=== PATIENT | female | born 1990 | race Caucasian/White ===

== ENCOUNTER 2019-02-22 05:28 | Inpatient (IN) | payer BC, OTHER ==
[~2019-02-22] VITALS: Ht 162.6 cm; Wt 73.1 kg
[2019-02-22 05:28] VITALS: Ht 162.6 cm; Wt 73.1 kg
[2019-02-22 05:46] VITALS: BP 120/73; PULSE 102; RESP 18
[2019-02-22] MEDS ORDERED: FER325 PO (06:03)
[2019-02-22] MEDS ORDERED: CHOL200073 PO (06:03)
[2019-02-22] MEDS ORDERED: FOL8 PO (06:03)
[2019-02-22] MEDS ORDERED: PREN-99 PO (06:03)
[2019-02-22] MEDS ORDERED: LACTATED RINGER'S 1,000 ML IV PRN (06:10)
--- NOTE | 2019-02-22 06:28 | TRIAGE ---
OB Triage Datetime Report Generated by CPN: 02/22/2019 06:28 Datetime: 02/22/2019 05:55 Vaginal Exam Dilatation (cms): 1.0 Effacement (%): 50 Station: -2 Exam By: MAREK Maharaj RN Membrane Status: Intact Cervix, Consistency: Moderate Cervix, Position: Posterior Datetime: 02/22/2019 05:54 Time of Arrival: 02/22/2019 05:28 EGA: 38.6 Arrived By: Ambulatory Arrived From: Home Chief Complaint: c/o uterine contractions with vaginal pressure Movement: Present Contractions: Regular Time Contractions Began: 02/22/2019 01:00 Contractions: 4-5 MINUTES Rupture of Membranes: Denies Vaginal Bleeding: None Vaginal Discharge: Denies Recent Sexual Intercouse: Denies Abdominal Trauma: Not Applicable Patient Complaints: Contractions Time Provider Notified: 02/22/2019 06:05 Provider Notified: ABUSLEME Initial Plan: EFM, SVE Datetime: 02/22/2019 05:52 Stage of : OB Triage Datetime: 02/22/2019 05:46 Stage of : OB Triage Assessment Type: Triage Maternal Assessment Level of Consciousness: Fully Conscious DTR's/Clonus: DTRs 2+; No Clonus Headache: Denies Blurred Vision: No Respiratory Effort: Unlabored; Regular Rhythm; Equal Expansion Breath Sounds, Left: Clear and Equal Breath Sounds, Right: Clear and Equal Nausea/Vomiting: Denies RUQ Epigastric Pain: Denies Facial Edema: None Fall Risk Assessment History of Falling: (0) No Secondary Diagnosis: (0) No Ambulatory Aid: (0) Bedrest/Nurse Assist IV Therapy: (0) No Gait: (0) Normal/Bedrest/Immobile Mental Status: (0) Oriented to Own Ability Fall Score: 0 Fall Risk Score Definition: No Risk: No action required
[2019-02-22] MEDS ORDERED: IBUPROFEN 600 MG TAB PO PRN (06:30)
[2019-02-22] MEDS ORDERED: MISOPROSTOL 200 MCG TAB PR PRN (06:30)
[2019-02-22] MEDS ORDERED: BUTORPHANOL 2 MG INJ IV PRN (06:30)
[2019-02-22] MEDS ORDERED: OXYTOCIN 30 UNITS/LR 500 ML IV SCH ×3 (06:30→14:30)
[2019-02-22] MEDS ORDERED: OXYTOCIN 30 UNITS/LR 500 ML IV PRN ×2 (06:30→08:00)
[2019-02-22] MEDS ORDERED: AMPICILLIN 2 GM/NS (PMX) 100 ML IV ONE (06:30)
[2019-02-22] MEDS ORDERED: CARBOPROST 250 MCG INJ IM PRN (06:30)
[2019-02-22] MEDS ORDERED: METHYLERGONOVINE 0.2 MG INJ IM PRN (06:30)
[2019-02-22] MEDS: LACTATED RINGER'S 1,000 ML IV SCH ×4 (07:47→21:11)
--- NOTE | 2019-02-22 09:01 | PREAC ---
Date/Time of Note Date/Time of Note DATE: 02/22/19 TIME: 09:01 Anesthesia Eval and Record Evaluation Time Pre-Procedure Interview DATE: 02/22/19 TIME: 09:01 Age 28 Sex female NPO: 8 hrs Preoperative diagnosis Planned procedure labor epidural Past Medical History Past Medical History: None Surgery & Anesthesia Issues No known issue Meds Anticoagulation: No Beta Clarice within 24 hr: No Reason Beta Clarice not given: Pt. not on B-Clarice Reported Medications Folic Acid* (Folic Acid*) 0.8 Mg Tablet, 0.8 MG PO DAILY, TAB 02/22/19 Cholecalciferol (Vitamin D3) (VITAMIN D-3) 2,000 Unit Capsule, 2000 UNIT PO, CAP 02/22/19 Ferrous Sulfate* (Ferrous Sulfate*) 325 Mg Tabec, 325 MG PO DAILY, TAB 02/22/19 Vit #76/Iron,Carb/FA (Pnv 29-1 Tablet) 1 Each Tablet, 1 EACH PO, TAB 02/22/19 Current Medications Lactated Ringer's 1,000 ml @ 125 mls/hr Q8H IV Last administered on 02/22/19at 09:00; Admin Dose 125 MLS/HR; Start 02/22/19 at 06:10 Ampicillin 50 ml @ 100 mls/hr Q4H IV ; Start 02/22/19 at 10:30 Butorphanol Tartrate (Stadol) 2 mg Q2H PRN IV .PAIN; Start 02/22/19 at 06:30 Lidocaine (Xylocaine 1% (Mpf)) 30 ml ONCE PRN INJ .EPISIOTOMY; Start 02/22/19 at 06:30 Oxytocin/Lactated Ringer's 500 ml @ 500 mls/hr ONCE POST IV ; Start 02/22/19 at 06:30 Oxytocin/Lactated Ringer's 500 ml @ 125 mls/hr POST IV ; Start 02/22/19 at 06:30 Ibuprofen (Motrin) 600 mg ONCE PRN PO .PAIN 1-5; Start 02/22/19 at 06:30 Lactated Ringer's 1,000 ml @ 2,000 mls/hr Q30M PRN IV .ANESTHESIA; Start 02/22/19 at 06:10 Oxytocin/Lactated Ringer's 500 ml @ 0 mls/hr ONCE PRN IV .VAGINAL BLEEDING; Start 02/22/19 at 06:30 Methylergonovine Maleate (Methergine) 0.2 mg ONCE PRN IM .VAGINAL BLEEDING; Start 02/22/19 at 06:30 Carboprost Tromethamine (Hemabate) 250 mcg ONCE PRN IM .VAGINAL BLEEDING; Start 02/22/19 at 06:30 Misoprostol (Cytotec) 1,000 mcg ONCE PRN GA .VAGINAL BLEEDING; Start 02/22/19 at 06:30 Oxytocin/Lactated Ringer's 500 ml @ 0 mls/hr FOR AUGMENTATION PRN IV to augment labor; Start 02/22/19 at 08:00 Meds reviewed: Yes Allergies Coded Allergies: No Known Allergy (Unverified , 02/22/19) Allergies Reviewed: Yes Labs/Studies Labs Reviewed: Reviewed by anesthesiologist Result Diagram: 02/22/19 0744 Laboratory Tests 02/22/19 07:44 Blood Bank Test 02/22/19 07:44 Antibody Screen NEGATIVE Blood Type O POSITIVE Rh Immune Globulin Candidate NO test: Positive Pre-procedure Exam Last vitals Vital Signs Date Temp Pulse Resp B/P (MAP) Pulse Ox O2 O2 Flow FiO2 Time Delivery Rate 02/22/19 98.6 102 18 120/73 Room Air 05:46 (89) Airway: Adequate mouth opening, Adequate thyromental dist Mallampati: Mallampati II Teeth: Normal Lung: Normal Heart: Normal ASA Physical Status ASA physical status: 2 Emergency: None Planned Anesthetic Neuraxial: Epidural Pre-operative Attestations Prior to commencing anesthesia and surgery, the patient was re-evaluated, there was verification of: *The patient's identity *The results of appropriate recent lab work and preoperative vital signs *The above evaluation not changing prior to induction *Anesthetic plan, risk benefits, alternative and complications discussed with patient/family; questions answered; patient/family understands, accepts and wishes to proceed. BRENNA VICKERS February 22, 2019 09:01
[2019-02-22] MEDS ORDERED: DIPHENHYDRAMINE 50 MG INJ IV PRN (09:30)
[2019-02-22] MEDS ORDERED: HYDROmorphONE 0.5 MG/0.5 ML SYG IV PRN ×2 (09:30)
[2019-02-22] MEDS ORDERED: ONDANSETRON 4 MG INJ IV PRN (09:30)
[2019-02-22] MEDS ORDERED: KETOROLAC 30 MG INJ IV PRN (09:30)
[2019-02-22] MEDS ORDERED: NALOXONE (0.4 MG/ML) INJ IV PRN (09:30)
[2019-02-22] MEDS: AMPICILLIN 1 GM/NS (PMX) 50 ML IV SCH ×4 (12:06→23:59)
[2019-02-22] MEDS: FENTAnyl 2MCG/ML-ROPIV 0.2% 100 ML BAG EPI SCH (18:37)
--- NOTE | 2019-02-22 22:02 | PAC ---
Date/Time of Note Date/Time of Note DATE: 02/22/19 TIME: 22:02 Post-Anesthesia Notes Post-Anesthesia Note Last documented vital signs Vital Signs Date Temp Pulse Resp B/P (MAP) Pulse Ox O2 O2 Flow FiO2 Time Delivery Rate 02/22/19 98.6 102 18 120/73 Room Air 05:46 (89) Activity: WNL Respiratory function: WNL Cardiovascular function: WNL Mental status: Baseline Pain reasonably controlled: Yes Hydration appropriate: Yes Nausea/Vomiting absent: Yes BRENNA VICKERS February 22, 2019 22:02
[2019-02-23] MEDS: FENTAnyl 2MCG/ML-ROPIV 0.2% 100 ML BAG EPI SCH (00:20)
[2019-02-23] MEDS: LIDOCAINE 1% (MPF) 30 ML INJ INJ PRN ×2 (02:06→02:07)
--- NOTE | 2019-02-23 02:29 | HP ---
Date/Time of Note Date/Time of Note DATE: 02/23/19 TIME: 02:25 OB - History Hx of Present Free Text/Dictation 28 years old female 1 para 0 with an EDC 03/02/2019 Patient came in in labor with contractions and pain Admitted for delivery Last Menstrual Period: May 23, 2018 Estimated Due Date: March 02, 2019 : 1 Care: Good Care Ultrasounds: Normal mid trimester US Medical Complications: None Past Family/Social History * Past Medical, Surgical, Family and Obstetric Histories reviewed from chart. Blood Type: O+ Rubella: not immune RPR/VDRL: Negative GBS Status: Negative HBsAG: Negative OB Admission Exam Vital Signs Vital Signs Vital Signs Date Temp Pulse Resp B/P (MAP) Pulse Ox O2 O2 Flow FiO2 Time Delivery Rate 02/22/19 98.6 102 18 120/73 Room Air 05:46 (89) Physical Exam HEENT: WNL Heart: Rhythm Normal Lungs: Clear, Equal Abdomen: WNL Extremities: Normal Reflexes: Normal Cervical Dilatation: 1cm Effacement: 75% Station: -2 Membranes: Intact Heart Rate: 120's Accelerations: Accelerations Present Decelerations: No Decelerations Varibility: Moderate Contractions on Admission: < 5 Minutes Apart Intensity: Moderate Last 72 hours Lab Results CBC & BMP 02/22/19 07:44 RAFAEL CAMPBELL MD February 23, 2019 02:29
[2019-02-23] MEDS ORDERED: MINERAL OIL LIGHT 10 ML VIAL TOP ONE (02:30)
--- NOTE | 2019-02-23 02:32 | LDN ---
Date/Time of Note Date/Time of Note DATE: 02/23/19 TIME: 02:29 Delivery Summary 28 years old female 1 para 0 with an EDC of March 02, 2019 Patient came admitted for active labor She was going to be induced on Wednesday for weight over 8 pounds Patient had an epidural anesthesia Spontaneous vaginal delivery baby boy 9 Bilateral labial laceration repair under local anesthesia Vaginal laceration repair under local anesthesia Baby and mother did very well Blood loss approximately 400 cc Weeks of Gestation 39.1 weeks of gestation Placenta Delivered: Spontaneously Meconium: none Episiotomy: No Laceration repair: Bilateral labial and vaginal Anesthesia type: Epidural Sponge & Needle done & correct: Yes All needle counts correct: Yes Any foreign bodies felt in the: No Infant Delivery Information Sex Sex: male Apgars 1 Minute: 9 Suctioning Nose & mouth suctioned at owen: Yes Umbilical Cord Umbilical cord with: 3 Vessels Cord presentations: no nuchal cord Cord Blood was obtained: Yes Mother & Baby Disposition Disposition Mom & Baby to Maternity; Good: Yes RAFAEL CAMPBELL MD February 23, 2019 02:32
[2019-02-23] MEDS ORDERED: SENNA/DOCUSATE NA (8.6MG/50MG) TAB PO PRN (04:00)
[2019-02-23] MEDS ORDERED: CARBOPROST 250 MCG INJ IM PRN (04:00)
[2019-02-23] MEDS ORDERED: MISOPROSTOL 200 MCG TAB PR PRN (04:00)
[2019-02-23] MEDS ORDERED: OXYTOCIN 30 UNITS/LR 500 ML IV PRN (04:00)
[2019-02-23] MEDS ORDERED: MAGNESIUM HYDROXIDE 30ML CUP PO PRN (04:00)
[2019-02-23] MEDS ORDERED: DIBUCAINE 1% 30 GM OINT TOP PRN (04:00)
[2019-02-23] MEDS ORDERED: DIPHENHYDRAMINE 25 MG CAP PO PRN (04:00)
[2019-02-23] MEDS ORDERED: HYDROCODONE/APAP (5/325) TAB PO PRN ×2 (04:00)
[2019-02-23] MEDS ORDERED: ONDANSETRON 4 MG TAB PO PRN (04:00)
[2019-02-23] MEDS ORDERED: BENZOCAINE 20% 56 ML SPRAY TOP PRN (04:00)
[2019-02-23] MEDS ORDERED: ACETAMINOPHEN 325 MG TAB PO PRN ×2 (04:00)
[2019-02-23] MEDS ORDERED: METHYLERGONOVINE 0.2 MG INJ IM PRN (04:00)
[2019-02-23] MEDS ORDERED: LANOLIN HPA 1 PKT TOP PRN (04:00)
[2019-02-23] MEDS ORDERED: DIPHENHYDRAMINE 50 MG INJ IV PRN (04:00)
[2019-02-23] MEDS ORDERED: ONDANSETRON 4 MG INJ IV PRN (04:00)
[2019-02-23] MEDS: IBUPROFEN 800 MG TAB PO SCH ×3 (05:53→18:24)
[2019-02-23] MEDS: LACTATED RINGER'S 1,000 ML IV* SCH ×3 (06:10→19:59)
[2019-02-23 08:00] VITALS: BP 105/60; PULSE 73; RESP 17
[2019-02-23 12:00] VITALS: BP 94/53; PULSE 70; RESP 16
[2019-02-23 16:00] VITALS: BP 89/55; PULSE 83; RESP 16
[2019-02-23 20:30] VITALS: BP 101/63; PULSE 80; RESP 18
[2019-02-24] MEDS: IBUPROFEN 800 MG TAB PO SCH ×5 (00:22→23:56)
[2019-02-24] MEDS: LACTATED RINGER'S 1,000 ML IV* SCH (03:59)
[2019-02-24 04:00] VITALS: BP 102/62; PULSE 72; RESP 18
[2019-02-24 09:15] VITALS: BP 105/58; PULSE 76; RESP 17
--- NOTE | 2019-02-24 12:23 | PD.PPDC ---
WHEEL TRUER Discharge Instruction Condition [id number] Patient Condition: Adxiz0j Good Diet Noupy1Jm Diet: Juscz7u Resume Regular Diet Activity/Restrictions [id number] Activity: Tgegc1w Normal Activity May Shower Cinkn2Bp Restrictions: Yycrn7a No Exercising No Lifting No Driving No Sexual Activity Nothing in the Vagina No [place] No Tampons, douche Wound/Drain Care Instructions [id number] Wound/Drain Care Instructions: Hhaty6g Wash with soap and water Keep clean and dry Follow-up Follow-up with Physician: 6, Week/Weeks Return to clinic for [id number] HUC OB Instructions: Eyprq5v Fever greater than 101 Chills Worsening abdominal pain Excessive Vaginal Bleeding More than 2 pads per hour Unable to tolerate diet [id number] OB Instructions: Bynvi9y Breast Tenderness Depression Blurried Vision Headache Utjxn1Wm Surgical Instructions: Jmold9v Incisional Drainage Incisional Redness RAFAEL CAMPBELL MD February 24, 2019 12:23
--- NOTE | 2019-02-24 12:26 | PN ---
Date/Time of Note Date/Time of Note DATE: 02/24/19 TIME: 12:25 OB Subjective Subjective Subjective Day 1 Doing well, breast-feeding No complaints. Had BM. Uterus contracted Lochia normal Possible discharge tomorrow CBC within normal OB Objective HEENT: WNL Heart: Rhythm Normal Lungs: Clear, Equal Abdomen: WNL Extremities: Normal Reflexes: Normal RAFAEL CAMPBELL MD February 24, 2019 12:26
[2019-02-24 15:45] VITALS: BP 100/59; PULSE 73; RESP 16
[2019-02-24 19:45] VITALS: BP 87/52; PULSE 76; RESP 19
[2019-02-24] MEDS ORDERED: MEASLES,MUMPS,RUBELLA VACCINE INJ SC* ONE (23:45)
[2019-02-25 03:30] VITALS: BP 99/63; PULSE 65; RESP 18
[2019-02-25] MEDS: IBUPROFEN 800 MG TAB PO SCH ×2 (05:48→12:06)
[2019-02-25 08:00] VITALS: BP 96/51; PULSE 64; RESP 18
[2019-02-25] MEDS ORDERED: MEASLES,MUMPS,RUBELLA VACCINE INJ SC* ONE (09:00)
[2019-02-25] MEDS ORDERED: DIPHTH/TET/ACEL PERTUSS (ADULT) 0.5 ML VIAL IM* ONE (09:00)
[2019-02-25] MEDS ORDERED: VARICELLA VACCINE LIVE/PF 1,350 UNIT/0.5 ML ML SC* ONE (09:00)
--- NOTE | 2019-02-26 13:09 | DELSUM ---
Delivery Summary A-C Datetime Report Generated by CPN: 02/26/2019 13:08 DELIVERY PERSONNEL Sueding Machine Operator: Kevan, Destini MATERNAL INFORMATION Delivery Anesthesia: Epidural Medications in Delivery: 30 UNITS PITOCIN IN 500ML LR Delivery QBL (ml): 400 Placenta Cultured: No Maternal Complications: None LABOR SUMMARY EDC: 03/02/2019 00:00 No. Babies in Womb: 1 Attempted: No Labor Anesthesia: Epidural LABOR INFORMATION Reason for Induction: Not Applicable Onset of Labor: 02/22/2019 01:30 Complete Dilatation: 02/23/2019 01:20 Oxytocin: Augmentation Group B Beta Strep: Positive Antibiotics # of Doses: X5 AMP Antibiotics Time of Last Dose: 02/22/2019 23:59 Steroids Given: None Reason Steroids Not Administered: Not Applicable MEMBRANES Membranes Rupture Method: Artificial Rupture of Membranes: 02/22/2019 22:40 Length of Rupture (hr): 3.08 Amniotic Fluid Color: Clear Amniotic Fluid Amount: Small Amniotic Fluid Odor: None STAGES OF LABOR Stage 1 hr: 23 Stage 1 min: 50 Stage 2 hr: 0 Stage 2 min: 25 Stage 3 hr: 0 Stage 3 min: 2 Total Time in Labor hr: 24 Total Time in Labor min: 17 VAGINAL DELIVERY Episiotomy: None Laceration Extension: N/A Other Laceration: bilateral labial Laceration Repair: Yes Initial Vag Sponge Count: 10 Final Vag Sponge Count: 20 Initial Vag Sharps Count: 1 Final Vag Sharps Count: 2 Sponge Count Correct: Yes; Vaginal Sweep Performed Sharps Count Correct: Yes BABY A INFORMATION Infant Delivery Date/Time: 02/23/2019 01:45 Method of Delivery: Vaginal Born in Route : No : N/A Forceps: N/A Vacuum Extraction: N/A Shoulder Dystocia : N/A SHOULDER DYSTOCIA BABY A Delivery Date/Time: 02/23/2019 01:45 PRESENTATION/POSITION BABY A Presentation: Cephalic Cephalic Presentation: Vertex Vertex Position: Left Occipital Anterior Breech Presentation: N/A PLACENTA INFORMATION BABY A Placenta Delivery Time : 02/23/2019 01:47 Placenta Method of Delivery: Expressed Placenta Status: Delivered SCORES BABY A Heart Rate 1 min: >100 bpm Resp Effort 1 min: Good Cry Reflex Irritability 1 min: Cough/Sneeze/Pulls Away Muscle Tone 1 min: Active Motion Color 1 min: Body [place], Extremit Blue Resuscitation Effort 1 min: Tactile Stimulation SCORE 1 MIN: 9 Heart Rate 5 min: >100 bpm Resp Effort 5 min: Good Cry Reflex Irritability 5 min: Cough/Sneeze/Pulls Away Muscle Tone 5 min: Active Motion Color 5 min: Body [place], Extremit Blue Resuscitation Effort 5 min: Tactile Stimulation SCORE 5 MIN: 9 INFORMATION BABY A Gestational Age at Delivery: 39.0 Gestational Status: Full Term- 39- 40.6 Weeks Outcome : Liveborn Infant Condition : Stable Infant Sex: Male IDENTIFICATION/MEDS BABY A ID Band Number: [id number] ID Band Location: Right Leg; Left Leg Sensor Applied: Yes Sensor Number: [id number] Sensor Location : Cord Clamp Vitamin K Given : Not Given Erythromycin Given: Not Given WEIGHT/LENGTH BABY A Infant Birthweight (gm): 3675 Infant Weight (lb): 8 Weight (oz): 2 Infant Length (in): 19.50 Infant Length (cm): 49.53 CORD INFORMATION BABY A No. Cord Vessels: 3 Nuchal Cord : N/A Cord Blood Taken: Yes Infant Suction: Mouth; Nose ASSESSMENT BABY A Complications: None Complications- Other: SUCTIONED 10CC FLUID Physical Findings at Delivery: Caput [place]ane[place] Respirations: Appears Normal [place] [employer] Burner/ALS Called : No Care By: KENYATTA Transferred To: Remains with Mother
== END 2019-02-25 12:50 | disposition home or self-care (01) | DRG 807 ==
LOC: OBT 05:28 → L-D 05:38 → OBT 06:05 → L-D 06:05 → PP1 02-23 03:41
PROVIDERS: ADMIT Obstetrics & Gynecology; ATTEND Obstetrics & Gynecology
PROC: 10E0XZZ Delivery of Products of Conception, External Approach (ICD-10-PCS; principal; 2019-02-23)
PROC: 0HQ9XZZ Repair Perineum Skin, External Approach (ICD-10-PCS; 2019-02-23)
DX: O70.0 First degree perineal laceration during delivery (principal); Z37.0 Single live birth; Z3A.38 38 weeks gestation of pregnancy; Z23 Encounter for immunization
CPT/HCPCS: 62322; 76815; 76818; 85025; 85610; 85730; 86592; 86850; 86900; 86901; 87086; 87340; 90715; 90716; G0463; J0290; J1170; J2210; J2590; J3010; J7120